=== PATIENT | male | born 1935 | race Caucasian/White ===

== ENCOUNTER 2018-07-08 10:44 | Inpatient (IN) ==
[2018-07-08] MEDS ORDERED: Isovue-370 500 ML BOTTLE IVP ONE (11:05)
[2018-07-08] MEDS ORDERED: Ondansetron 4 MG/2 ML VIAL IVP ONE (11:14)
[2018-07-08] MEDS ORDERED: 0.9 % Sodium Chloride 1,000 ML IVC ONE (11:14)
[2018-07-08 11:30] LABS: Basophils % 0.5 %; Eosinophils # 0.2 K/mcL (0.0-0.6); Eosinophils % 5.7 %; Hematocrit 34.4 % (37.5-50.1); Hemoglobin 11.5 g/dL (12.9-16.9); Immature Granulocytes % 0.3 % (0-4); Lymphocytes % 24.9 %; Mean Corpuscular HGB Conc 33.4 g/dL (31.6-35.5); Mean Corpuscular Hemoglobin 30.4 pg (28.0-33.3); Mean Platelet Volume 9.5 fL (9.4-12.4); Monocytes # 0.5 K/mcL (0.0-1.3); Neutrophils # 2.1 K/mcL (1.6-8.9); Platelet Count 196 K/mcL (140-400); Red Blood Count 3.78 M/mcL (4.19-5.50); Red Cell Distribution Width 13.1 % (11.5-14.5); Segmented Neutrophils % 54.6 %
[2018-07-08 11:40] LABS: Bilirubin,Urine Negative (Negative); Blood,Urine Negative (Negative); Clarity,Urine Clear (Clear); Color,Urine Yellow (Yellow); Glucose,Urine (UA) Normal (Normal); Ketones,Urine Negative (Negative); Leukocyte Esterase,Urine Negative (Negative); Nitrite,Urine Negative (Negative); PH,Urine 6.5 pH Units (5.0-8.0); Protein,Urine Negative (Neg-Trace); Specific Gravity,Urine 1.007 (1.010-1.025); Urobilinogen,Urine Normal (Normal)
[2018-07-08 11:49] LABS: INR 4.5
--- NOTE | 2018-07-08 11:52 | Emergency Department Note ---
Disposition Clinical Impression: Colitis Disposition: Admitted As Inpatient Condition: Good Referrals: Teddy Garcia DO [Primary Care Provider] - Forms: ED Satisfaction Letter, Work/School Release General Adult HPI - General Chief complaint: ED Abdominal Pain Stated complaint: diarrhea/weakness Time Seen by Provider: 07/08/18 10:56 Source: patient Limitations: no limitations Nursing Notes Reviewed: Yes Vital Signs Reviewed: Yes - History of Present Illness HPI Narrative: Onset patient presenting to the emergency department for evaluation of weakness dehydration and diarrhea. Patient had for 5 episodes of diarrhea last night which she describes as watery in nature. The patient has had this for proximally 6 weeks. No known previous exposure. Patient was recently admitted to an outside hospital, [facility], where he underwent further evaluation of possible underlying heart issues as well as given antibiotics for presumed infectious diarrhea. Patient states that he has been home. No significant change In with the given treatment. Patient has continued to have watery bowel movements. Patient has continued to feel weak and dehydrated. Patient will undergo further evaluation for dehydration, infectious, as well as further workup for diarrhea. Pain Scale: 0 - Related Data Home Medications Medication Instructions Recorded Confirmed Aspirin 81 mg PO DAILY 10/20/14 10/20/14 Atenolol [Tenormin] 25 mg PO DAILY 10/20/14 10/20/14 DULoxetine [Cymbalta] 60 mg PO DAILY 10/20/14 10/20/14 Flecainide 100 mg PO Q12HR 10/20/14 10/20/14 Lisinopril [Zestril] 20 mg PO BID 10/20/14 10/20/14 Pantoprazole Sodium 40 mg PO QAM 10/20/14 10/20/14 Warfarin [Coumadin] 2.5 mg PO ONCE 10/20/14 10/20/14 Warfarin [Coumadin] 4 mg PO AD 10/20/14 10/20/14 Warfarin [Coumadin] 5 mg PO AD 10/20/14 10/20/14 Previous Rx's Medication Instructions Recorded HydrOXYzine 10 mg PO QID #30 tablet 01/28/15 Hydrocortisone 2.5% CREAM [Cortaid] 1 appl TP BID #1 tube 01/28/15 Ondansetron [Zofran] 4 mg PO Q8HR PRN #15 tablet 01/28/15 metroNIDAZOLE [Flagyl] 500 mg PO BID #14 tablet 01/28/15 Allergies Allergy/AdvReac Type Severity Reaction Status Date / Time meperidine [From Demerol] AdvReac Mild See Verified 07/08/18 10:47 Comments All systems ED: reviewed and negative except as stated. Review of Systems: As Per HPI Constitutional: Reports: weakness. Denies: fever ENT ED: Denies: congestion Cardiovascular: Denies: chest pain, palpitations, dyspnea on exertion Respiratory: Denies: cough Gastrointestinal: Reports: abdominal pain, nausea, diarrhea. Denies: vomiting Genitourinary: Denies: urgency, dysuria, frequency Musculoskeletal: Denies: back pain Integumentary: Denies: rash, abrasion, lesions Neurological: Reports: weakness (Generalized). Denies: headache Endocrine: Reports: fatigue Past Medical History - Past Medical History Medical history: Reports: atrial fibrillation, hypertension Psychiatric history: Reports: no psych history - Social History Smoking Status: Never smoker Smokeless Tobacco Status: No Alcohol use: Reports: none Drug use: Reports: none Physical Exam General: Well appearing, nontoxic, no acute distress Head: Normocephalic Atraumatic Eyes: PERRL, EOMI ENT: Airway patent, no stridor Neck: supple, no meningismus Chest: Lungs clear to auscultation bilateral Cardiac: Regular rate and rhythm, no murmurs, rubs or gallops Abdomen: soft, mild tenderness the right lower quadrant nondistended; no guarding, rebound, or tenderness to percussion, no CVA tenderness Musculoskeletal: Calves symmetric, nontender. Skin: No rash, normal skin tone. Neuro: Alert and Oriented to person, place, and time; No obvious focal deficit. - General Limitations: no limitations General appearance: alert, in no apparent distress Course - Reevaluation(s) Reevaluation #1: Pt states last admission was 3 wks ago. Patient states continued weakness. Patient states he presented today due to concern for weakness with his associ ated symptoms and does not feel comfortable going home with his current situation. Patient will be placed on antibiotics and admitted for further evaluation of colitis seen on CT. She was also found to have an elevated INR. Coumadin should be held at this time. Stool samples pending. - Consultations Consultation #1: Discussed with hospitalist. Patient accepted for admission. Vital Signs Temperature 97.5 F L 07/08/18 10:47 Pulse Rate 58 07/08/18 10:47 Respiratory Rate 18 07/08/18 10:47 Blood Pressure 139/79 07/08/18 10:47 O2 Sat by Pulse Oximetry 94 07/08/18 10:47 Temperature 97.5 F L 07/08/18 10:47 Pulse Rate 58 07/08/18 12:52 Respiratory Rate 18 07/08/18 12:52 Blood Pressure 125/83 07/08/18 12:52 O2 Sat by Pulse Oximetry 95 07/08/18 12:52 Oxygen Delivery Oxygen Delivery Nasal Cannula Medical Decision Making - Medical Records Medical records reviewed: Yes I reviewed the patient's medical records. - Lab Data Lab results reviewed: Yes I reviewed the patient's lab results. Result diagrams: 07/08/18 11:13 07/08/18 11:13 Lab Results 07/08/18 07/08/18 07/08/18 Range/Units 11:10 11:13 11:13 WBC 3.9 L (4.3-11.1) K/mcL RBC 3.78 L (4.19-5.50) M/mcL Hgb 11.5 L (12.9-16.9) g/dL Hct 34.4 L (37.5-50.1) % MCV 91.0 (83.0-100.0) fL MCH 30.4 (28.0-33.3) pg MCHC 33.4 (31.6-35.5) g/dL RDW 13.1 (11.5-14.5) % Plt Count 196 (140-400) K/mcL MPV 9.5 (9.4-12.4) fL Immature Gran % 0.3 (0-4) % Seg Neutrophils % 54.6 % Lymphocytes % 24.9 % Monocytes % 14.0 % Eosinophils % 5.7 % Basophils % 0.5 % Neutrophils # 2.1 (1.6-8.9) K/mcL Lymphocytes # 1.0 (0.6-4.6) K/mcL Monocytes # 0.5 (0.0-1.3) K/mcL Eosinophils # 0.2 (0.0-0.6) K/mcL Basophils # 0.0 (0.0-0.2) K/mcL PT 51.0 H* (9.4-12.1) Seconds INR 4.5 H* Sodium 136 (136-145) mEq/L Potassium 3.4 L (3.5-5.1) mEq/L Chloride 102 (98-107) mEq/L Carbon Dioxide 26 (23-29) mEq/L BUN 14 (8-23) mg/dL Creatinine 1.15 (0.70-1.30) mg/dL Est GFR ( Amer) > 60 (> 60) Est GFR (Non-Af Amer) > 60 (> 60) BUN/Creatinine Ratio 12 (6-26) Glucose 86 (70-105) mg/dL Calculated Osmolality 282 (280-300) Lactic Acid (0.5-2.2) mmol/L Calcium 8.4 L (8.6-10.3) mg/dL Total Bilirubin 0.4 (0.3-1.0) mg/dL Direct Bilirubin 0.0 (0.0-0.2) mg/dL Indirect Bilirubin 0.4 (0.0-1.2) mg/dL AST 12 L (13-39) Units/L ALT 10 (7-52) Units/L Alkaline Phosphatase 71 (34-104) Units/L Troponin I (< 0.04) ng/mL Serum Total Protein 6.1 L (6.4-8.9) g/dL Albumin 3.6 (3.5-5.7) g/dL Globulin 2.5 (2.4-3.5) g/dL Albumin/Globulin Ratio 1.4 (1.1-2.2) Amylase 27 L (29-103) Units/L Lipase < 3 L (11-82) Units/L Urine Color (Yellow) Urine Clarity (Clear) Urine pH (5.0-8.0) pH Units Ur Specific [place] (1.010-1.025) Urine Protein (Neg-Trace) mg/dL Urine Glucose (UA) (Normal) mg/dL Urine Ketones (Negative) mg/dL Urine Blood (Negative) Urine Nitrite (Negative) Urine Bilirubin (Negative) Urine Urobilinogen (Normal) mg/dL Ur Leukocyte Esterase (Negative) Ur Culture Indicated? (NO) 07/08/18 07/08/18 07/08/18 Range/Units 11:13 11:13 11:31 WBC (4.3-11.1) K/mcL RBC (4.19-5.50) M/mcL Hgb (12.9-16.9) g/dL Hct (37.5-50.1) % MCV (83.0-100.0) fL MCH (28.0-33.3) pg MCHC (31.6-35.5) g/dL RDW (11.5-14.5) % Plt Count (140-400) K/mcL MPV (9.4-12.4) fL Immature Gran % (0-4) % Seg Neutrophils % % Lymphocytes % % Monocytes % % Eosinophils % % Basophils % % Neutrophils # (1.6-8.9) K/mcL Lymphocytes # (0.6-4.6) K/mcL Monocytes # (0.0-1.3) K/mcL Eosinophils # (0.0-0.6) K/mcL Basophils # (0.0-0.2) K/mcL PT (9.4-12.1) Seconds INR Sodium (136-145) mEq/L Potassium (3.5-5.1) mEq/L Chloride (98-107) mEq/L Carbon Dioxide (23-29) mEq/L BUN (8-23) mg/dL Creatinine (0.70-1.30) mg/dL Est GFR ( Amer) (> 60) Est GFR (Non-Af Amer) (> 60) BUN/Creatinine Ratio (6-26) Glucose (70-105) mg/dL Calculated Osmolality (280-300) Lactic Acid 0.7 (0.5-2.2) mmol/L Calcium (8.6-10.3) mg/dL Total Bilirubin (0.3-1.0) mg/dL Direct Bilirubin (0.0-0.2) mg/dL Indirect Bilirubin (0.0-1.2) mg/dL AST (13-39) Units/L ALT (7-52) Units/L Alkaline Phosphatase (34-104) Units/L Troponin I < 0.03 (< 0.04) ng/mL Serum Total Protein (6.4-8.9) g/dL Albumin (3.5-5.7) g/dL Globulin (2.4-3.5) g/dL Albumin/Globulin Ratio (1.1-2.2) Amylase (29-103) Units/L Lipase (11-82) Units/L Urine Color Yellow (Yellow) Urine Clarity Clear (Clear) Urine pH 6.5 (5.0-8.0) pH Units Ur Specific [place] 1.007 L (1.010-1.025) Urine Protein Negative (Neg-Trace) mg/dL Urine Glucose (UA) Normal (Normal) mg/dL Urine Ketones Negative (Negative) mg/dL Urine Blood Negative (Negative) Urine Nitrite Negative (Negative) Urine Bilirubin Negative (Negative) Urine Urobilinogen Normal (Normal) mg/dL Ur Leukocyte Esterase Negative (Negative) Ur Culture Indicated? NO (NO) - Radiology Data Radiology results reviewed: Yes I reviewed the patient's radiology results. - EKG Data EKG #1 EKG attestation: Yes I reviewed and interpreted this EKG. EKG results narrative: EKG shows sinus rhythm with a heart rate of 54 MS 209 QRS 127 QTC 425 patient has no significant ST elevations or depressions. EKG unchanged from 10/20/14 other than relative bradycardia.
[2018-07-08 11:53] LABS: Alanine Aminotransferase 10 Units/L (7-52); Albumin 3.6 g/dL (3.5-5.7); Albumin/Globulin Ratio 1.4 (1.1-2.2); Alkaline Phosphatase 71 Units/L (34-104); Amylase 27 Units/L (29-103); Aspartate Amino Transferase 12 Units/L (13-39); BUN/Creatinine Ratio 12 (6-26); Bilirubin,Indirect 0.4 mg/dL (0.0-1.2); Bilirubin,Total 0.4 mg/dL (0.3-1.0); Blood Urea Nitrogen 14 mg/dL (8-23); Calcium 8.4 mg/dL (8.6-10.3); Carbon Dioxide 26 mEq/L (23-29); Chloride 102 mEq/L (98-107); Globulin 2.5 g/dL (2.4-3.5); Glucose 86 mg/dL (70-105); Lipase < 3 Units/L (11-82); Osmolality,Calculated 282 (280-300); Potassium 3.4 mEq/L (3.5-5.1); Sodium 136 mEq/L (136-145); Total Protein 6.1 g/dL (6.4-8.9); eGFR For Non-African Americans > 60 (> 60)
[2018-07-08] MEDS ORDERED: MetroNIDAZOLE 500 MG/100 ML 500 MG/100 ML BAG IVPB STA (13:24)
--- NOTE | 2018-07-08 14:44 | Internal Med History&Physical ---
Date of Encounter: 07/08/18 Time of Encounter: 14:43 Internal Medicine - H&P: HPI Chief complaint: Diarrhea Admitted From: Home Plans for Post Hospital Care: Home History of present illness: Mr. Donald is a 83 year old male is medical history of hypertension and atrial fibrillation on Coumadin came in with complain of diarrhea and weakness. Patient has been having diarrhea for about 6 weeks. Patient was at [facility] admitted for a couple days for diarrhea and had antibiotics for 4 days. He was discharged with medication for IBS according to him. No specific diagnoses was told to him. He followed up with PCP after. Had stool Ova and parasite done after patient appears to be negative. He continued to have diarrhea about 4-5 episodes a day. He is worse over the past 1 week. Denies any fevers chills nausea or vomiting. Has mild abdominal discomfort. Denies any chest pain and difficulty breathing shortness of breath or urinary complaints. Denies any travel history or sick contacts. Lives with at home does not have similar complaints. Denies any skin rash. Denies any new medication. Patient was relatively in ER which showed mild leukopenia, elevated INR. CT abdomen and pelvis showed patchy colitis involving descending and sigmoid colon and proctitis. Past Med Surg Social Fam HX - Past Medical History Medical history: atrial fibrillation, hypertension Psychiatric history: no psych history - Past Surgical History Additional surgical history: Cardiac ablasion - Social History Smoking Status: Never smoker Smokeless Tobacco Status: No Alcohol use: none Drug use: none - Family History Mother Hx Family Cardiac Disorders: Yes (HTN) Father Hx Family Cardiac Disorders: Yes (HTN) - Additional Family History Additional family history: Healthy kid Internal Medicine - H&P: Meds Albuterol Sulfate [Albuterol Inhaler] 2 puff IH Q6H PRN 07/08/18 [History] Amlodipine Besylate 5 mg PO DAILY 07/08/18 [History] Atenolol [Tenormin] 25 mg PO BID 07/08/18 [History] Duloxetine HCl [Cymbalta] 60 mg PO DAILY 07/08/18 [History] Lisinopril [Zestril] 20 mg PO BID 07/08/18 [History] Warfarin Sodium 4 mg PO SUFRSA 07/08/18 [History] Warfarin Sodium 5 mg PO MOTUWETH 07/08/18 [History] Allergy/AdvReac Type Severity Reaction Status Date / Time meperidine [From Demerol] AdvReac Mild See Verified 07/08/18 10:47 Comments All Systems PM: A 10-system review of systems was performed and is negative for pertinent fi ndings except as documented above in the HPI. - Constitutional Vitals: Temp Pulse Resp BP Pulse Ox 97.5 F L 56 16 134/82 98 07/08/18 10:47 07/08/18 13:53 07/08/18 13:53 07/08/18 13:53 07/08/18 13:53 Exam: Constitutional: Vitals as noted. Conversant. No Apparent Distress. Well groomed. No obvious deformities. Eyes : Sclera white, conjunctiva clear, no lid lag, PEARLA. ENT : Grossly normal hearing. Oropharyngeal exam unremarkable. Moist mucus membranes. No JVD, no cervical lymphadenopathy. no thyromegaly or mass. Respiratory : Clear to auscultation bilaterally. No accessory muscle use, rales, rhonchi or wheezes Cardiovascular : RRR, +S1, +S2. no murmur, gallop, rubs. No chest wall tend erness GI/Abdominal : Soft, Non-tender, Non-distended, normal bowel sounds, soft, no peritoneal signs. no orgenomegaly or mass appreciated. no hernia. Musculoskeletal: no deformity noted. no edema or cyanosis. warm extremities, pulses palpable and symmetrical in UE/LE. no calf tenderness. Neurological: AO X3, CN II-XII grossly intact, grossly normal motor and sensory exam. Skin: Mild petechei on Lt wrist Pych: Good insight and judgement. Intact memory. AOx3. Internal Med - H&P Results - Labs CBC & Chem 7: 07/08/18 11:13 07/08/18 11:13 Labs: Short CBC 07/08/18 Range/Units 11:13 WBC 3.9 L (4.3-11.1) K/mcL Hgb 11.5 L (12.9-16.9) g/dL Hct 34.4 L (37.5-50.1) % Plt Count 196 (140-400) K/mcL Neutrophils # 2.1 (1.6-8.9) K/mcL BMP 07/08/18 11:13 Sodium 136 Potassium 3.4 L Chloride 102 Carbon Dioxide 26 BUN 14 Creatinine 1.15 Glucose 86 Calcium 8.4 L Cardiac Enzymes 07/08/18 Range/Units 11:13 Troponin I < 0.03 (< 0.04) ng/mL Liver Function 07/08/18 Range/Units 11:13 Total Bilirubin 0.4 (0.3-1.0) mg/dL Direct Bilirubin 0.0 (0.0-0.2) mg/dL AST 12 L (13-39) Units/L ALT 10 (7-52) Units/L Alkaline Phosphatase 71 (34-104) Units/L Albumin 3.6 (3.5-5.7) g/dL Urine 07/08/18 Range/Units 11:31 Urine Color Yellow (Yellow) Urine Clarity Clear (Clear) Urine pH 6.5 (5.0-8.0) pH Units Ur Specific [place] 1.007 L (1.010-1.025) Urine Protein Negative (Neg-Trace) mg/dL Urine Glucose (UA) Normal (Normal) mg/dL - EKG Data -: EKG Interpreted by Myself - Impressions ITS Impressions Abdomen/Pelvis CT 07/08/18 11:05 IMPRESSION: 1. Patchy colitis involving the descending and sigmoid colon. Likely related diffuse proctitis. An infectious or inflammatory etiology is considered more likely than ischemia. 2. Trace free fluid is likely reactive. 3. Incidental findings as above. D/ / Umesh Grant MD / Umesh Grant MD Interpreting Provider: Umesh Grant MD Chest X-Ray 07/08/18 11:13 IMPRESSION: Elevation of the right hemidiaphragm No evidence of acute process within the chest D/ / 07/08/2018 11:50:55 Edgardo Syed MD / jorge Interpreting Provider: Edgardo Syed MD - Assessment and Plan (1) Diarrhea Current Visit: Yes Status: Acute Assessment and plan: Patient with persistant diarrhea CT with colitis. Infectious versus inflammatory. No significant family history of IBD. Was diagnosed with IBS from [facility]. No blood in stool. We will keep patient on IV fluids for now Patient with negative stool O and parasite results on 06/23/18 We will obtain GI panel and stool culture Keep on ciprofloxacin and metronidazole for now We will consider GI consult on Wednesday Qualifiers: Diarrhea type: unspecified type Qualified Code(s): R19.7 - Diarrhea, unspecified (2) Colitis Current Visit: Yes Status: Acute Assessment and plan: As above (3) Afib Current Visit: Yes Status: Acute Assessment and plan: Currently in sinus rhythm Had ablation done 3 years ago and had loop recorder. EKG with rate controlled Hold atenolol and given some bradycardia. We will resume depending on rate control Hold Coumadin given supratherapeutic INR. Qualifiers: Atrial fibrillation type: chronic Qualified Code(s): I48.2 - Chronic atrial fibrillation (4) HTN (hypertension) Current Visit: Yes Status: Acute Assessment and plan: Continue home lisinopril and amlodipine Qualifiers: Hypertension type: essential hypertension Qualified Code(s): I10 - Essential (primary) hypertension (5) Supratherapeutic INR Current Visit: Yes Status: Acute Assessment and plan: Hold home Coumadin Possibly related to recent antibiotic use Monitor daily INR - Time Spent With Patient Total time spent is greater than 50% in coordination of care (as documented) at patient's floor/unit and/or counseling patient:
[2018-07-08] MEDS ORDERED: Naloxone 0.4 MG/ML INJ IVP PRN (15:24)
[2018-07-08] MEDS: Ringers Solution, Lactated 1,000 ML IVC SCH (16:25)
[2018-07-08] MEDS: MetroNIDAZOLE 500 MG/100 ML 500 MG/100 ML BAG IVPB SCH (16:25)
[2018-07-08 19:02] LABS: C-Reactive Protein < 5 mg/L (Less than 10)
[2018-07-08] MEDS: Lisinopril 20 MG TABLET PO SCH (21:22)
[2018-07-08 22:30] LABS: Adenovirus F 40/41 PCR Not detected (Not detect); Astrovirus PCR Not detected (Not detect); C.difficile Toxin A/B Gene PCR Not detected (Not detect); Campylobacter by PCR Not detected (Not detect); Cryptosporidium by PCR Not detected (Not detect); Cyclospora cayetanensis PCR Not detected (Not detect); E. coli O157 by PCR Not detected (Not detect); Entamoeba histolytica PCR Not detected (Not detect); Enteroaggregative E.coli(EAEC) Not detected (Not detect); Enteropathogenic E.coli(EPEC) Not detected (Not detect); Enterotoxigenic E.coli (ETEC) Not detected (Not detect); Giardia lamblia PCR Not detected (Not detect); Norovirus GI/GII PCR Not detected (Not detect); Plesiomonas shigelloides PCR Not detected (Not detect); Rotavirus A PCR Not detected (Not detect); Salmonella PCR Not detected (Not detect); Sapovirus PCR Not detected (Not detect); Shig/EnteroinvasiveE coli EIEC Not detected (Not detect); Shigalike tox-prod E coli STEC Not detected (Not detect); Vibrio PCR Not detected (Not detect); Vibrio cholerae PCR Not detected (Not detect); Yersinia enterocolitica PCR Not detected (Not detect)
[2018-07-09] MEDS: MetroNIDAZOLE 500 MG/100 ML 500 MG/100 ML BAG IVPB SCH ×2 (00:36→07:10)
[2018-07-09] MEDS: Ringers Solution, Lactated 1,000 ML IVC SCH (07:15)
[2018-07-09 07:45] LABS: Basophils % 0.7 %; Eosinophils # 0.3 K/mcL (0.0-0.6); Eosinophils % 6.1 %; Hematocrit 37.5 % (37.5-50.1); Hemoglobin 12.2 g/dL (12.9-16.9); Lymphocytes % 22.4 %; Mean Corpuscular HGB Conc 32.5 g/dL (31.6-35.5); Mean Corpuscular Hemoglobin 30.1 pg (28.0-33.3); Mean Corpuscular Volume 92.6 fL (83.0-100.0); Mean Platelet Volume 9.7 fL (9.4-12.4); Monocytes # 0.7 K/mcL (0.0-1.3); Monocytes % 14.3 %; Neutrophils # 2.6 K/mcL (1.6-8.9); Platelet Count 198 K/mcL (140-400); Red Blood Count 4.05 M/mcL (4.19-5.50); Red Cell Distribution Width 13.2 % (11.5-14.5); Segmented Neutrophils % 56.5 %
[2018-07-09 08:02] LABS: INR 3.9
[2018-07-09 08:04] LABS: BUN/Creatinine Ratio 10 (6-26); Blood Urea Nitrogen 10 mg/dL (8-23); Calcium 8.7 mg/dL (8.6-10.3); Carbon Dioxide 26 mEq/L (23-29); Chloride 105 mEq/L (98-107); Glucose 91 mg/dL (70-105); Osmolality,Calculated 283 (280-300); Potassium 3.7 mEq/L (3.5-5.1); Sodium 137 mEq/L (136-145); eGFR For Non-African Americans > 60 (> 60)
[2018-07-09 08:10] LABS: Prothrombin Time 43.5 Seconds (9.4-12.1)
[2018-07-09] MEDS: Lisinopril 20 MG TABLET PO SCH (08:40)
[2018-07-09] MEDS ORDERED: amLODIPine 5 MG TABLET PO SCH (09:00)
[2018-07-09 10:38] VITALS: BP 137/80
--- NOTE | 2018-07-09 12:42 | Internal Med Progress Note ---
Hospitalist Progress Note - Encounter Date of Encounter: 07/09/18 Time of Encounter: 11:42 - Subjective Interval History: Patient seen and examined this morning at bedside. No acute overnight events. He continues to have diarrhea watery. Had about 2-3 episodes yesterday. Still feels weak. Denies any fevers. Hemodynamically stable. - Exam Vitals: Temp Pulse Resp BP Pulse Ox 98.2 F 64 16 137/80 96 07/09/18 10:38 07/09/18 10:38 07/09/18 10:38 07/09/18 10:38 07/09/18 10:38 Exam: General: In no acute distress. Obese Respiratory exam: CTAB. no accessory muscle use, rales, rhonchi, wheezes Cardiovascular exam: RRR, +S1, +S2. no murmur, gallop, rubs. GI/Abdominal exam: Non-tender, Non-distended, normal bowel sounds, soft, no peritoneal signs. Extremities exam: no pedal edema, pulses palpable in b/l lower extremities. no calf tenderness Neurological exam: CN II-XII intact, AO X3, no focal deficits. Skin exam: Mild petichie on Lt wrist - Assessment and Plan (1) Diarrhea Current Visit: Yes Status: Acute (2) Colitis Current Visit: Yes Status: Acute (3) Afib Current Visit: Yes Status: Acute (4) HTN (hypertension) Current Visit: Yes Status: Acute (5) Supratherapeutic INR Current Visit: Yes Status: Acute - Summary of Assessment and Plan Summary of Assessment and Plan: Diarrhea - Patient with persistant diarrhea - CT with colitis. Infectious versus inflammatory. Possible IBS diagnosis from [facility]. No blood in stool. - Cdiff and GI panel negative. Patient with negative stool Ova and parasite results on 06/23/18 - c/w IV fluids for now. - c/w ciprofloxacin and metronidazole for now - Will call GI consult on Wednesday for possible scope given persistant diarrhea. Had colonoscopy about 3-5 years ago here but no records available. Colitis - As above Afib - in sinus rhythm - s/p ablation - hold atenolol for [place] card[place] - Hold coumadin given supratherapeutic INR. HTN - c/w home lisinopril and amlodipine Supratherapeutic INR - Hold home Coumadin - Possibly related to recent antibiotic use - monitor daily INR. No active bleeding. - Time Spent with Patient Total time spent is greater than 50% in coordination of care (as documented) at patient's floor/unit and/or counseling patient: Internal Medicine: Result - Labs CBC & Chem 7: 07/09/18 07:32 07/09/18 07:32 Labs: Short CBC 07/09/18 Range/Units 07:32 WBC 4.6 (4.3-11.1) K/mcL Hgb 12.2 L (12.9-16.9) g/dL Hct 37.5 (37.5-50.1) % Plt Count 198 (140-400) K/mcL Neutrophils # 2.6 (1.6-8.9) K/mcL BMP 07/09/18 07:32 Sodium 137 Potassium 3.7 Chloride 105 Carbon Dioxide 26 BUN 10 Creatinine 0.99 Glucose 91 Calcium 8.7 - ABG Interpretation ABG results: PT/INR, D-dimer PT 43.5 Seconds (9.4-12.1) H* 07/09/18 07:32 - Impressions Impressions Abdomen/Pelvis CT 07/08/18 11:05 IMPRESSION: 1. Patchy colitis involving the descending and sigmoid colon. Likely related diffuse proctitis. An infectious or inflammatory etiology is considered more likely than ischemia. 2. Trace free fluid is likely reactive. 3. Incidental findings as above. D/ / Umesh Grant MD / Umesh Grant MD Interpreting Provider: Umesh Grant MD Chest X-Ray 07/08/18 11:13 IMPRESSION: Elevation of the right hemidiaphragm No evidence of acute process within the chest D/ / 07/08/2018 11:50:55 Edgardo Syed MD / joreg Interpreting Provider: Edgardo Syed MD Consult Discharge Plan - Plan Referrals: Teddy Garcia DO [Primary Care Provider] - (1) Diarrhea Qualifiers: Diarrhea type: unspecified type Qualified Code(s): R19.7 - Diarrhea, unspecified (3) Afib Qualifiers: Atrial fibrillation type: chronic Qualified Code(s): I48.2 - Chronic atrial fibrillation (4) HTN (hypertension) Qualifiers: Hypertension type: essential hypertension Qualified Code(s): I10 - Essential (primary) hypertension
[2018-07-09] MEDS ORDERED: 0.9 % Sodium Chloride 1,000 ML IVC SCH (14:15)
--- NOTE | 2018-07-09 15:02 | Discharge Summary ---
- NOTES TO OUTPATIENT PROVIDER Notes to Outpatient Provider: She will need to follow up with gastroenterology to consider colonoscopy. Patient has to hold warfarin until his INR check on Wednesday given he will be on antibiotics. Orders not resulted at time of discharge: Pending orders 07/08/18 19:00 Calprotectin, Fecal Routine Culture,Stool [RM] Stat Ova & Parasite Exam Stat Potassium,Fecal Routine Sodium,Fecal Routine Date of Encounter: 07/09/18 Time of Encounter: 14:53 - Discharge Diagnosis (1) Diarrhea Priority: Primary Status: Acute Qualifiers: Diarrhea type: unspecified type Qualified Code(s): R19.7 - Diarrhea, unspecified (2) Colitis Priority: Primary Status: Acute (3) Afib Priority: Secondary Status: Acute Qualifiers: Atrial fibrillation type: chronic Qualified Code(s): I48.2 - Chronic atrial fibrillation (4) HTN (hypertension) Priority: Secondary Status: Acute Qualifiers: Hypertension type: essential hypertension Qualified Code(s): I10 - Essential (primary) hypertension (5) Supratherapeutic INR Priority: Secondary Status: Acute Hospital course: Mr. Donald is a 83 year old male with past medical history of hypertension, atrial fibrillation status post ablation on Coumadin came in with complaint of diarrhea and weakness. Patient was recently admitted for similar condition at another hospital where he had workup done which was unremarkable. He was able to have IBS by PCP. He came in with complain of ongoing diarrhea and feeling weak. Patient had CT abdomen and pelvis which showed patchy colitis involving descending and sigmoid colon and proctitis. Stool GI panel and C. difficile testing was negative. Amylase was normal, CRP was negative, ESR was 15. Patient was also found to have supratherapeutic INR however did not complain of any active bleeding. Patient was started on antibiotics empirically and IV fluids. Given minimal to normal and telemetry markers discussed with patient about need for GI evaluation however that will not happen until Wednesday. After discussion is not decided to go home and follow with GI as outpatient for colonoscopy. Mentions last colonoscopy about 3 years ago was unremarkable however not find the reports in chart. Patient otherwise stable to be discharged home with 2 more days of oral antibiotics, loperamide and I asked to hold Coumadin until INR check on Wednesday given he will be on metronidazole and ciprofloxacin. Patient still needed further testing and few more pending stool test to be resulted before making more definitive diagnosis, however patient stable to be discharged as able to tolerate by mouth fluids and food. Patient comfortable and agrees to follow up outpatient with GI. Discharge discussed with: patient, family, nurse - Time Spent with Patient Total time spent providing and/or coordinating discharge services: Time spent: Greater than 30 minutes (40) - Discharge Medications Prescriptions: New Loperamide [Imodium] 2 mg PO Q4HR PRN 7 Days #30 capsule PRN Reason: Diarrhea Lactobacillus Acidophilus [Acidophilus] 1 each PO DAILY #30 capsule Ciprofloxacin [Cipro] 500 mg PO BID 2 Days #4 tablet metroNIDAZOLE [Metronidazole] 500 mg PO Q8H 2 Days #6 tablet Continued Albuterol Sulfate [Albuterol Inhaler] 2 puff IH Q6H PRN PRN Reason: Shortness Of Breath Amlodipine Besylate 5 mg PO DAILY Atenolol [Tenormin] 25 mg PO BID Duloxetine HCl [Cymbalta] 60 mg PO DAILY Lisinopril [Zestril] 20 mg PO BID Warfarin Sodium 4 mg PO SUFRSA Warfarin Sodium 5 mg PO MOTUWETH Home Medications: Albuterol Sulfate [Albuterol Inhaler] 2 puff IH Q6H PRN 07/08/18 [History] Amlodipine Besylate 5 mg PO DAILY 07/08/18 [History] Atenolol [Tenormin] 25 mg PO BID 07/08/18 [History] Duloxetine HCl [Cymbalta] 60 mg PO DAILY 07/08/18 [History] Lisinopril [Zestril] 20 mg PO BID 07/08/18 [History] Warfarin Sodium 4 mg PO SUFRSA 07/08/18 [History] Warfarin Sodium 5 mg PO MOTUWETH 07/08/18 [History] Ciprofloxacin [Cipro] 500 mg PO BID 2 Days #4 tablet 07/09/18 [Rx] Lactobacillus Acidophilus [Acidophilus] 1 each PO DAILY #30 capsule 07/09/18 [Rx] Loperamide [Imodium] 2 mg PO Q4HR PRN 7 Days #30 capsule 07/09/18 [Rx] metroNIDAZOLE [Metronidazole] 500 mg PO Q8H 2 Days #6 tablet 07/09/18 [Rx] Allergies/Adverse Reactions: Allergy/AdvReac Type Severity Reaction Status Date / Time meperidine [From Demerol] AdvReac Mild See Verified 07/08/18 10:47 Comments Date of admission: 07/08/18 16:32 Primary care physician: Teddy Garcia DO Consults: 07/08/18 17:04 Consult to Nutrition [CONS] Routine Comment: Consulting Provider: NUTRITION Reason for Dietary Consult: MST Score Discharging clinician: Zachary Weber - Constitutional Vitals: Temp Pulse Resp BP Pulse Ox 98.2 F 64 16 137/80 96 07/09/18 10:38 07/09/18 10:38 07/09/18 10:38 07/09/18 10:38 07/09/18 10:38 Exam: General: In no acute distress. Obese Respiratory exam: CTAB. no accessory muscle use, rales, rhonchi, wheezes Cardiovascular exam: RRR, +S1, +S2. no murmur, gallop, rubs. GI/Abdominal exam: Non-tender, Non-distended, normal bowel sounds, soft, no peritoneal signs. Extremities exam: no pedal edema, pulses palpable in b/l lower extremities. no calf tenderness Neurological exam: CN II-XII intact, AO X3, no focal deficits. Skin exam: Mild petichie on Lt wrist - Patient Status Disposition: Home, Self-Care Condition: Good - Discharge Instructions Follow Up With: Teddy Garcia DO [Primary Care Provider] -
== END 2018-07-09 15:49 | disposition home or self-care (01) | DRG 392 ==
LOC: EMEROOARM 10:44 → 3NENU 10:44 → SUATTDRO 16:32
PROVIDERS: ADMIT Internal Medicine; ATTEND Internal Medicine